=== PATIENT | male | born 1995 | race Caucasian/White ===

== ENCOUNTER 2016-10-22 18:51 | Emergency (ER) | payer OTHER ==
[~2016-10-22] VITALS: Ht 175.3 cm; Wt 59.0 kg
[~2016-10-22 18:51] MED LIST: BACT2OIN TOPICAL; DICL75TA PO
[2016-10-22 18:52] VITALS: BP 141/87; PULSE 52; RESP 16; TEMP 98.5; O2SAT 99
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
[2016-10-22] MEDS ORDERED: PROPARACAINE HCL 0.5% OPHT SOLN 15 ML BTL EACH EYE ONE (19:30)
[2016-10-22] MEDS ORDERED: ACETAMINOPHEN/HYDROcodone 325 MG/5 MG TAB PO ONE (20:00)
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
== END 2016-10-22 20:31 | disposition home or self-care (01) ==
LOC: NEPK 18:51
DX: T55.1X1A Toxic effect of detergents, accidental (unintentional), initial encounter (principal); T26.91XA Corrosion of right eye and adnexa, part unspecified, initial encounter
CPT/HCPCS: 99284